=== PATIENT | female | born 1960 | race Caucasian/White ===

== ENCOUNTER 2017-04-09 18:00 | Emergency (ER) | payer BC ==
[2017-04-09 18:24] VITALS: BP 129/75; PULSE 66; RESP 16; TEMP 97.6
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
== END 2017-04-09 19:05 | disposition home or self-care (01) ==
LOC: EC 18:00
DX: T20.00XA Burn of unspecified degree of head, face, and neck, unspecified site, initial encounter (principal); Z88.2 Allergy status to sulfonamides; X14.1XXA Other contact with hot air and other hot gases, initial encounter; Y92.009 Unspecified place in unspecified non-institutional (private) residence as the place of occurrence of the external cause
CPT/HCPCS: 99283

== ENCOUNTER 2018-05-15 12:38 | Emergency (ER) | payer BC, OTHER ==
[2018-05-15 13:07] VITALS: TEMP 98.2
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
[2018-05-15 14:25] VITALS: BP 113/62; PULSE 66; RESP 14
== END 2018-05-15 14:20 | disposition home or self-care (01) ==
LOC: EC 12:38
DX: T26.91XA Corrosion of right eye and adnexa, part unspecified, initial encounter (principal); T26.92XA Corrosion of left eye and adnexa, part unspecified, initial encounter; Z88.2 Allergy status to sulfonamides; Y92.69 Other specified industrial and construction area as the place of occurrence of the external cause; Y99.0 Civilian activity done for income or pay
CPT/HCPCS: 99283

== ENCOUNTER 2019-06-18 09:02 | Emergency (ER) | payer BC, OTHER ==
[2019-06-18 09:08] VITALS: BP 122/67; PULSE 73; RESP 18; TEMP 98.1
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
== END 2019-06-18 09:45 | disposition home or self-care (01) ==
LOC: EC 09:02
DX: Z77.21 Contact with and (suspected) exposure to potentially hazardous body fluids (principal); Z88.1 Allergy status to other antibiotic agents; Z88.2 Allergy status to sulfonamides; W46.0XXA Contact with hypodermic needle, initial encounter
CPT/HCPCS: 99283

== ENCOUNTER 2019-06-29 13:00 | Emergency (ER) | payer BC, OTHER ==
[2019-06-29] MEDS ORDERED: LIDOCAINE 1% INJ 10MG/ML (20 ML MDV) SQ ONE (13:02)
--- NOTE | 2019-06-29 13:06 | ED ---
General Adult HPI - General Stated complaint: Fb in thumb Time Seen by Provider: 06/29/19 13:02 Source: patient, RN notes reviewed, old records reviewed - History of Present Illness Initial comments: 58-year-old female presents for evaluation of sliver in the right thumb. 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 She was able to remove part of the sliver. She is up-to-date on her tetanus. No other complaints. - Related Data Home Medications Medication Instructions Recorded Confirmed Cholecalciferol [Vitamin D3] 2,000 unit PO DAILY 04/09/17 04/09/17 Allergies Allergy/AdvReac Type Severity Reaction Status Date / Time sulfamethoxazole Allergy Rash/Hives Verified 06/18/19 09:08 [From Bactrim] trimethoprim [From Bactrim] Allergy Rash/Hives Verified 06/18/19 09:08 Review of Systems ROS Statement: Those systems with pertinent positive or pertinent negative responses have been documented in the HPI. ROS Other: All systems not noted in ROS Statement are negative. Past Medical History Past Medical History: No Reported History History of Any Multi-Drug Resistant Organisms: None Reported Past Surgical History: No Surgical Hx Reported Past Psychological History: No Psychological Hx Reported Smoking Status: Never smoker Past Alcohol Use History: None Reported Past Drug Use History: None Reported General Exam General appearance: alert, in no apparent distress Head exam: Present: atraumatic, normocephalic Eye exam: Present: normal appearance ENT exam: Present: normal exam Respiratory exam: Absent: respiratory distress Cardiovascular Exam: Present: regular rate, normal rhythm Extremities exam: Present: other (Sliver on the palmar surface right first digit, distal phalanx) Procedures - Forgein Body Removal Soft Tissue Consent Obtained: verbal consent Site: hand Anesthetic Used: lidocaine 1% Amount (mLs): 2 Foreign Body Suspected: Wood Foreign Body Removed: yes Foreign Body Removal Technique: Instrumentation Patient Tolerated Procedure: well Medical Decision Making - Medical Decision Making There is prepped with chlorhexidine, lidocaine injected approximately 1-2 mL superficial incision is made and would sliver is removed. Dressing is applied. Patient will monitor for signs of infection. Disposition Clinical Impression: Superficial foreign body (sliver) Disposition: HOME SELF-CARE Condition: Good Instructions (If sedation given, give patient instructions): Soft Tissue Foreign Body (ED) Is patient prescribed a controlled substance at d/c from ED?: No Referrals: None,Stated [Primary Care Provider] - 1-2 days Time of Disposition: 13:06
[2019-06-29 13:07] VITALS: BP 112/74; PULSE 76; RESP 16
== END 2019-06-29 13:16 | disposition home or self-care (01) ==
LOC: EC 13:00
DX: S60.351A Superficial foreign body of right thumb, initial encounter (principal); Z88.2 Allergy status to sulfonamides; W45.8XXA Other foreign body or object entering through skin, initial encounter
CPT/HCPCS: 99283; 10120; J2001

== ENCOUNTER → 2019-11-05 | Outpatient (CLI) | payer BC | END | disposition home or self-care (01) | LOC: LABWHC1 07:10 | PROVIDERS: ATTEND Family Medicine | DX: U07.1 COVID-19 (principal) | CPT/HCPCS: 87635 ==

== ENCOUNTER → 2019-12-19 | Outpatient (CLI) | payer BC ==
--- NOTE | 2019-12-19 11:26 | CT ---
EXAMINATION TYPE: CT chest wo/w con DATE OF EXAM: 12/19/2019 COMPARISON: None HISTORY: Dyspnea and cough. +covid in September. CT DLP: 975 mGycm Automated exposure control for dose reduction was used. CONTRAST: CT scan of the chest is performed without and with IV Contrast, patient injected with 100 mL of Isovu e M300. FINDINGS: LUNGS: The lungs are grossly clear, there is no concerning parenchymal mass or nodule identified. T here is no pleural effusion or pneumothorax seen. The tracheobronchial tree is patent. MEDIASTINUM: There are no greater than 1 cm hilar or mediastinal lymph nodes. No pericardial effusi on is seen. Thoracic aorta is of normal caliber. The heart is not enlarged. UPPER ABDOMEN: No significant abnormality appreciated. OTHER: No additional significant abnormality is seen. IMPRESSION: No distinct abnormality to account for the patient's symptoms.
== END | disposition home or self-care (01) ==
LOC: RADCTMAIN 10:23
PROVIDERS: ATTEND Nurse Practitioner Family
DX: R06.00 Dyspnea, unspecified (principal)
CPT/HCPCS: 71270; Q9967

== ENCOUNTER → 2021-03-01 | Outpatient (CLI) | payer BC, OTHER | END | disposition home or self-care (01) | LOC: LABWHC1 12:48 | PROVIDERS: ATTEND Emergency Medicine | DX: Z20.822 Contact with and (suspected) exposure to COVID-19 (principal) | CPT/HCPCS: 87635 ==

== ENCOUNTER → 2021-03-02 | Outpatient (CLI) | payer BC, OTHER | END | disposition home or self-care (01) | LOC: LABWHC1 12:48 | PROVIDERS: ATTEND Emergency Medicine | DX: Z20.822 Contact with and (suspected) exposure to COVID-19 (principal) | CPT/HCPCS: 87635 ==

== ENCOUNTER → 2022-01-11 | Outpatient (CLI) | payer BC ==
--- NOTE | 2022-01-12 17:34 | MM ---
Reason for Exam: Screening (asymptomatic). Last mammogram was performed 14 year(s) and 11 month(s) ago. Patient History: Menarche at age 14. First Full-Term at age 23. Maternal cousin had breast cancer. Risk Values: Santa 5 year model risk: 1.2%. NCI Lifetime model risk: 5.8%. Prior Study Comparison: 03/28/2005 Bilateral Screening Mammogram, [facility]. 01/22/2007 Bilateral Screening Mammogram, [facility]. 07/03/2008 Bilateral Diagnostic Mammogram, [facility]. Tissue Density: The breast tissue is heterogeneously dense. This may lower the sensitivity of mammography. Findings: Analyzed By CAD. There is no suspicious group of microcalcifications or new suspicious mass in either breast. Asymmetric breast tissue demonstrated bilaterally. No significant change prior exam. Overall Assessment: Benign, BI-RAD 2 Management: Screening Mammogram of both breasts in 1 year. A clinical breast exam by your physician is recommended on an annual basis and results should be correlated with mammographic findings. Electronically signed and approved by: Navin Izaguirre D.O.
== END | disposition home or self-care (01) ==
LOC: RADMAMWWP 14:08
PROVIDERS: ATTEND Family Medicine
DX: Z12.31 Encounter for screening mammogram for malignant neoplasm of breast (principal)
CPT/HCPCS: 77067

== ENCOUNTER → 2023-02-15 | Outpatient (CLI) | payer BC ==
--- NOTE | 2023-02-16 08:54 | MM ---
Reason for Exam: Screening (asymptomatic). Last mammogram was performed 1 year(s) and 1 month(s) ago. Patient History: Menarche at age 14. First Full-Term at age 23. Maternal cousin had breast cancer. Risk Values: Santa 5 year model risk: 1.2%. NCI Lifetime model risk: 5.7%. Prior Study Comparison: 01/22/2007 Bilateral Screening Mammogram, [facility]. 07/03/2008 Bilateral Diagnostic Mammogram, [facility]. 01/11/2022 Bilateral MG screening mammo w CAD, [facility]. Tissue Density: There are scattered fibroglandular densities. Findings: Analyzed By CAD. There is no suspicious group of microcalcifications or new suspicious mass in either breast. Overall Assessment: Negative, BI-RAD 1 Management: Screening Mammogram of both breasts in [address] [facility] will attempt to contact patient to return for supplemental views and ultrasound if indicated. Patient should continue monthly self-breast exams. A clinical breast exam by your physician is recommended on an annual basis. This exam should not preclude additional follow-up of suspicious palpable abnormalities. Note on Santa scores and lifetime risk: 1. A Santa score greater than 3% is considered moderate risk. If this is the case, consider specialist referral to assess eligibility for a risk reducing agent. 2. If overall lifetime risk for the development of breast cancer is 20% or higher, the patient may qualify for future screening with alternating mammogram and breast MRI. Electronically signed and approved by: Jay Jay Aponte DO
== END | disposition home or self-care (01) ==
LOC: RADMAMWWP 11:06
PROVIDERS: ATTEND Family Medicine
DX: Z12.31 Encounter for screening mammogram for malignant neoplasm of breast (principal); Z80.3 Family history of malignant neoplasm of breast
CPT/HCPCS: 77063; 77067

== ENCOUNTER → 2024-03-29 | Outpatient (CLI) | payer BC ==
--- NOTE | 2024-04-01 08:44 | MM ---
Reason for Exam: Screening (asymptomatic). Last mammogram was performed 1 year(s) and 2 month(s) ago. Patient History: Menarche at age 14. First Full-Term at age 23. Postmenopausal. Patient has history of breast feeding. Maternal cousin had breast cancer. Risk Values: Santa 5 year model risk: 1.3%. NCI Lifetime model risk: 5.5%. Prior Study Comparison: 07/03/2008 Bilateral Diagnostic Mammogram, [facility]. 01/11/2022 Bilateral MG screening mammo w CAD, [facility]. 02/15/2023 Bilateral MG 3D screening mammo w/cad, [facility]. Tissue Density: There are scattered areas of fibroglandular density. Findings: Analyzed By CAD. Right breast: There is no suspicious group of microcalcifications or new suspicious mass. Left breast: There is no suspicious group of microcalcifications or new suspicious mass. Overall Assessment: Negative, BI-RAD 1 Management: Screening Mammogram of both breasts in [address] [facility] will attempt to contact patient to return for supplemental views and ultrasound if indicated. Patient should continue monthly self-breast exams. A clinical breast exam by your physician is recommended on an annual basis. This exam should not preclude additional follow-up of suspicious palpable abnormalities. Note on Santa scores and lifetime risk: 1. A Santa score greater than 3% is considered moderate risk. If this is the case, consider specialist referral to assess eligibility for a risk reducing agent. 2. If overall lifetime risk for the development of breast cancer is 20% or higher, the patient may qualify for future screening with alternating mammogram and breast MRI. [facility], , 04/01/2024 8:40 AM. Electronically signed and approved by: Jay Jay Aponte DO
== END | disposition home or self-care (01) ==
LOC: RADMAMWWP 12:49
PROVIDERS: ATTEND Family Medicine
CPT/HCPCS: 77063; 77067